=== PATIENT | male | born 1940 | race Caucasian/White ===

== ENCOUNTER 2020-09-04 18:49 | Inpatient (IN) | payer MEDICARE, MEDICAID, SELFPAY ==
[2020-09-04 19:11] VITALS: BP 114/63; PULSE 86; RESP 16; TEMP 36.7; O2SAT 97; BMI 22.8
--- NOTE | 2020-09-04 19:14 | XRR_ITS ---
PROCEDURE INFORMATION: Exam: XR Right Hip Exam date and time: 09/04/2020 7:14 PM Age: 79 years old Clinical indication: Injury or trauma; Fall; Blunt trauma (contusions or hematomas); Right; Hip TECHNIQUE: Imaging protocol: XR Right hip. Views: 1 view hip with pelvis when performed. COMPARISON: No relevant prior studies available. FINDINGS: Bones/joints: Displaced comminuted fractures through the intertrochanteric right femur. There are adjacent free fracture fragments. Soft tissues: Edema and/or hematoma is present in the soft tissues adjacent to the fracture site.Vasculature: There are peripheral vascular calcifications. XR/XR hip RT 2-3V wo/w pel* [id number] IMPRESSION: There are displaced comminuted fractures through the intertrochanteric right femur with adjacent free fracture fragments.
--- NOTE | 2020-09-04 19:14 | XRR_ITS ---
PROCEDURE INFORMATION: Exam: XR Chest Exam date and time: 09/04/2020 7:14 PM Age: 79 years old Clinical indication: Screening exam; Pre-operative exam; Other: Hip FX; Additional info: Fall TECHNIQUE: Imaging protocol: XR of the chest. Views: 1 view. COMPARISON: No relevant prior studies available. FINDINGS: Lungs: Unremarkable. No consolidation. Pleural spaces: Unremarkable. No pleural effusion. No pneumothorax. Heart/Mediastinum: Unremarkable. No cardiomegaly. Vasculature: There is calcified plaque in the aortic arch. Aortic knob is somewhat prominent. prominent. Bones/joints: There are degenerative changes in the thoracic spine and across the acromioclavicular joints. XR/XR chest 1V portable [id number] IMPRESSION: There is calcified plaque in the aortic arch. The aortic knob is somewhat prominent. This can be seen with hypertension.
--- NOTE | 2020-09-04 19:15 | ECG_ITS ---
[facility] Test Date: 2020-09-04 Pat Name: Raimundo Lepe Department: Room: 276 Gender: Male [employer]: : 1940 Requested By: Saturnino Lin Order Number: [id number] Mamta MD: Luke Ratliff M.D. Measurements Intervals [place] Rate: 123 P: WI: QRS: -66 QRSD: 174 T: 64 QT: 394 QTc: 565 Interpretive Statements UNCERTAIN IRREGULAR RHYTHM MARKED LEFT AXIS DEVIATION [QRS AXIS < -30] RIGHT BUNDLE BRANCH BLOCK [120+ ms QRS DURATION, UPRIGHT V1, 40+ ms S IN I/aVL/V4/V5/V6] No previous ECG available for comparison Electronically Signed On 09-05-2020 17:08:15 CDT by Luke Ratliff M.D. [id number]
[2020-09-04 19:42] LABS: Bilirubin Urine Neg (Negative); Blood Urine Neg (Negative); Glucose Urine UA Norm (Normal); Ketones Urine Negative (Negative); Nitrate Urine Negative (Negative); Protein Urine Neg (Negative); Urine Appearance Clear (CLEAR); Urine Color Yellow (Yellow); pH Urine 5 (5-7)
[2020-09-04 19:43] LABS: Add Urine Microscopic? YES; Leukocyte Esterase Urine Trace (Negative); Urobilinogen Urine Norm (Negative)
[2020-09-04 19:54] LABS: Basophils # 0.1 10^3/uL (0.0-0.1); Basophils % 0.5 %; Eosinophils # 0.3 10^3/uL (0.0-0.8); Eosinophils % 3.2 %; Hematocrit 34.4 % (42.0-52.0); Lymphocytes # 1.6 10^3/uL (0.8-4.8); Lymphocytes % 16.3 %; Mean Corpuscular Hemoglobin 28.9 pg (28.0-34.0); Mean Corpuscular Volume 90.5 fL (80-94); Mean Platelet Volume 10.5 fL (7.4-10.4); Monocytes # 0.9 10^3/uL (0.2-0.9); Monocytes % 8.6 %; Neutrophils # 7.11 10^3/uL (1.8-7.7); Neutrophils % 70.4 %; Nucleated Red Blood Cells % 0 %; Platelet Count 325 10^3/cmm (130-400); Red Cell Distribution Width 17.9 % (12.1-15.1); White Blood Count 10.1 10^3/uL (4.0-10.0)
[2020-09-04 19:59] LABS: Add Urine Culture? No; Squamous Epithelial Cell Urine 0-4 /hpf (0-5); WBC Urine 0-4 /hpf (0-5)
[2020-09-04 20:10] LABS: INR 1.19 (0.8-1.2)
[2020-09-04 20:11] LABS: Partial Thromboplastin Time 29.4 SECONDS (23.9-36.7)
[2020-09-04 20:19] LABS: Alanine Aminotransferase 20 U/L (0-41); Albumin Level 3.1 g/dL (3.5-5.2); Alkaline Phosphatase 85 IU/L (40-130); Anion Gap 10.9 (5-19); Aspartate Amino Transferase 29 U/L (0-40); Blood Urea Nitrogen 17 mg/dL (8-23); Carbon Dioxide 27 mmol/L (22-29); Chloride 105 mmol/L (98-107); Creatine Phosphokinase 87 U/L (39-308); Globulin 2.5 g/dL (1.3-4.6); Glucose 77 mg/dL (65-115); Osmolality Calculated 288 mOsm/kg (285-295); Potassium 3.9 mmol/L (3.5-5.1); Sodium 139 mmol/L (136-145); Total Bilirubin 1.3 mg/dL (0.15-1.2); Total Protein 5.6 g/dL (6.6-8.7)
--- NOTE | 2020-09-04 20:27 | PC.NURSE ---
1945 Sitter outside room because pt has hx of climbing out of bed.
--- NOTE | 2020-09-04 20:31 | ED_ITS ---
HPI - Fall General: Chief Complaint: Fall Stated Complaint: RIGHT LEG PAIN Time Seen by Provider: 09/04/20 18:59 History of Present Illness: HPI Narrative: 79-year-old demented half-way patient who is a fall risk in the half-way. He has a mattress on the floor. He was found beside the mattress in pain. His pain and deformity to his right lower extremity. He denies any other pain, no evidence of other trauma. MD complaint: fall Onset (ago): minute(s) Fall from: standing Fall witnessed: no Place fall occurred: half-way/SNF Loss of consciousness: Unsure Prolonged down time: no Symptoms prior to fall: other (Unknown) Location of injury - extremities: Right: thigh Severity: moderate Quality: sharp Associated symptoms-after fall: Denies abdominal pain, chest pain, confusion (At baseline), headache(s) or short of breath Review of Systems General: Reports: ROS unobtainable due to medical condition Const: Denies: fever(s) Card: Denies: chest pain Resp: Denies: dyspnea GI: Denies: abdominal pain Neuro: Denies: headache(s) or confusion (At baseline) Physical Exam Const: COMMON NORMALS: no acute distress and alert GENERAL APPEARANCE: frail appearing NUTRITIONAL APPEARANCE: thin Eye: COMMON NORMALS: Equal, round and reactive pupils present and EOMs intact bilaterally PUPIL: Yes Equal, round and reactive pupils present Neck/C-Spine: GENERAL: No tender Chest: COMMONS NORMALS: normal inspection of the chest Resp: COMMON NORMALS: normal respiratory effort, No use of accessory muscles and clear to auscultation bilaterally AUSCULTATION: clear to auscultation bilaterally Cardio: COMMON NORMALS: regular rate and regular rhythm RATE: regular rate RHYTHM: regular rhythm GI: COMMON NORMALS: Normal to inspection, nondistended, normoactive bowel sounds present, Soft to palpation and non-tender PALPATION: Yes Soft to palpation Extremity: NARRATIVE EXTREMITY EXAM: Exam the right lower extremity reveals tenderness anterior and laterally to the hip. There is significant pain on any logroll testing there is external rotation and shortening deformity present to the right lower extremity. Neuro: SENSORIUM/ORIENTATION: Yes alert Course Consultations: Consultation #1: chandrika Consultation #2: eren Time: 20:46 Vital Signs: Vital signs: Vital Signs Temperature 97.9 F 07/10/21 23:30 Pulse Rate 84 07/10/21 23:30 Respiratory Rate 18 09/05/20 00:42 Blood Pressure 120/68 09/04/20 23:30 Pulse Oximetry 96 09/04/20 23:30 MDM - Fall MDM Narrative: Medical decision making narrative: X-ray reveals a right intertrochanteric fracture. There may be a right upper lobe infiltrate. The chest film is rotated. We will try reshooting to see if it may be mediastinal shadow. Chest x-ray was rotated, it appears to be mediastinal shadow, and there is no infiltrate. Rapid Covid is pending. The patient will be admitted. Hospitalist and orthopedic surgeon are both aware. Lab Data: Labs: Lab Results 09/04/20 09/04/20 09/04/20 Range/Units 19:30 19:40 19:40 WBC 10.1 H (4.0-10.0) 10^3/ uL RBC 3.80 L (4.1-5.3) 10^6/u L Hgb 11.0 L (11.7-16.6) g/dL Hct 34.4 L (42.0-52.0) % MCV 90.5 (80-94) fL MCH 28.9 (28.0-34.0) pg MCHC 32.0 (30.0-36.0) g/dL RDW 17.9 H (12.1-15.1) % Plt Count 325 (130-400) 10^3/c mm MPV 10.5 H (7.4-10.4) fL Neut % (Auto) 70.4 % Lymph % (Auto) 16.3 % [place] % (Auto) 8.6 % Eos % (Auto) 3.2 % Baso % (Auto) 0.5 % Neut # (Auto) 7.11 (1.8-7.7) 10^3/u L Lymph # (Auto) 1.6 (0.8-4.8) 10^3/u L [place] # (Auto) 0.9 (0.2-0.9) 10^3/u L Eos # (Auto) 0.3 (0.0-0.8) 10^3/u L Baso # (Auto) 0.1 (0.0-0.1) 10^3/u L Nucleated RBC % (a uto) 0 % Nucleated RBCs # 0.0 /100WBC PT 15.40 H (12.1-14.9) SECO NDS INR 1.19 (0.8-1.2) APTT 29.4 (23.9-36.7) SECO NDS Sodium (136-145) mmol/L Potassium (3.5-5.1) mmol/L Chloride (98-107) mmol/L Carbon Dioxide (22-29) mmol/L Anion Gap (5-19) BUN (8-23) mg/dL Creatinine (0.7-1.2) mg/dL GFR Calculation Glucose (65-115) mg/dL Calculated Osmolal ity (285-295) mOsm/k g Calcium (8.5-10.5) mg/dL Total Bilirubin (0.15-1.2) mg/dL AST (0-40) U/L ALT (0-41) U/L Alkaline Phosphata se (40-130) IU/L Creatine Kinase (39-308) U/L Total Protein (6.6-8.7) g/dL Albumin (3.5-5.2) g/dL Globulin (1.3-4.6) g/dL Urine Color Yellow (Yellow) Urine Appearance Clear (CLEAR) Urine pH 5 (5-7) Ur Specific Gravit y 1.020 (1.005-1.030) Urine Protein Neg (Negative) Urine Glucose (UA) Norm (Normal) Urine Ketones Negative (Negative) Urine Blood Neg (Negative) Urine Nitrate Negative (Negative) Urine Bilirubin Neg (Negative) Urine Urobilinogen Norm (Negative) mg/dL Ur Leukocyte Jerrica ase Trace H (Negative) Urine RBC None (0-2) /hpf Urine WBC 0-4 H (0-5) /hpf Ur Squamous Epith Cells 0-4 H (0-5) /hpf Amorphous Sediment Not Reportable Urine Bacteria None (NONE) /hpf Valproic Acid (50-100) ug/mL 09/04/20 09/04/20 Range/Units 19:40 19:40 WBC (4.0-10.0) 10^3/ uL RBC (4.1-5.3) 10^6/u L Hgb (11.7-16.6) g/dL Hct (42.0-52.0) % MCV (80-94) fL MCH (28.0-34.0) pg MCHC (30.0-36.0) g/dL RDW (12.1-15.1) % Plt Count (130-400) 10^3/c mm MPV (7.4-10.4) fL Neut % (Auto) % Lymph % (Auto) % [place] % (Auto) % Eos % (Auto) % Baso % (Auto) % Neut # (Auto) (1.8-7.7) 10^3/u L Lymph # (Auto) (0.8-4.8) 10^3/u L [place] # (Auto) (0.2-0.9) 10^3/u L Eos # (Auto) (0.0-0.8) 10^3/u L Baso # (Auto) (0.0-0.1) 10^3/u L Nucleated RBC % (a uto) % Nucleated RBCs # /100WBC PT (12.1-14.9) SECO NDS INR (0.8-1.2) APTT (23.9-36.7) SECO NDS Sodium 139 (136-145) mmol/L Potassium 3.9 (3.5-5.1) mmol/L Chloride 105 (98-107) mmol/L Carbon Dioxide 27 (22-29) mmol/L Anion Gap 10.9 (5-19) BUN 17 (8-23) mg/dL Creatinine 0.5 L (0.7-1.2) mg/dL GFR Calculation Not Reportable Glucose 77 (65-115) mg/dL Calculated Osmolal ity 288 (285-295) mOsm/k g Calcium 9.0 (8.5-10.5) mg/dL Total Bilirubin 1.3 H (0.15-1.2) mg/dL AST 29 (0-40) U/L ALT 20 (0-41) U/L Alkaline Phosphata se 85 (40-130) IU/L Creatine Kinase 87 (39-308) U/L Total Protein 5.6 L (6.6-8.7) g/dL Albumin 3.1 L (3.5-5.2) g/dL Globulin 2.5 (1.3-4.6) g/dL Urine Color (Yellow) Urine Appearance (CLEAR) Urine pH (5-7) Ur Specific Gravit y (1.005-1.030) Urine Protein (Negative) Urine Glucose (UA) (Normal) Urine Ketones (Negative) Urine Blood (Negative) Urine Nitrate (Negative) Urine Bilirubin (Negative) Urine Urobilinogen (Negative) mg/dL Ur Leukocyte Jerrica ase (Negative) Urine RBC (0-2) /hpf Urine WBC (0-5) /hpf Ur Squamous Epith Cells (0-5) /hpf Amorphous Sediment Urine Bacteria (NONE) /hpf Valproic Acid 13.6 L (50-100) ug/mL Discharge Plan Discharge Patient Disposition: Admitted As Inpatient Admit Provider: Yudith Maddox Clinical Impression: Closed hip fracture Qualifiers: Encounter type: initial encounter Laterality: right Qualified Code(s): S72.001A - Fracture of unspecified part of neck of right femur, initial encounter for closed fracture Condition: Stable Coding Level of Care Code ED Child Therapist for [place] Fwd Exam Detailed
[2020-09-04 20:39] VITALS: BP 129/76; PULSE 89; RESP 18; O2SAT 97
[2020-09-04 20:57] LABS: Valproic Acid Level 13.6 ug/mL (50-100)
--- NOTE | 2020-09-04 21:55 | PC.NURSE ---
Pt resting, appears to be in no pain when not moving. Vital signs are stable. Sitter outside room.
[2020-09-04 22:19] LABS: SARS Covid-2 Antigen Negative (Negative)
[2020-09-04 22:21] VITALS: BP 127/81; PULSE 86; RESP 16; O2SAT 97
--- NOTE | 2020-09-04 22:45 | PM.HP ---
Providers/Chief Complaint Admitting Physician: Yudith Maddox MD Primary Care Provider: Surya Song DO Chief Complaint: RIGHT LEG PAIN History of Present Illness Raimundo Lepe is a 79 year old male who presented from [facility] after being found on the floor. Mr. Lepe has dementia and is a known fall risk at the facility. He does have a mattress on the floor in his room according to ER records. When he was found by staff, he had a visual deformity to the right lower extremity and was sent to the emergency room for evaluation. He was found to have an intertrochanteric fracture of the right hip. Case was discussed with orthopedics by the ER physician. He is being admitted for management. Rapid Covid antigen was negative. It looks like at baseline patient is known to have behavioral disturbances including crawling on the floor, counting, some increased agitation, taking off diaper. Symptoms worse at night. Had been on haldol for a while but changed to seroquel at bedtime 08/24. No history is able to be obtained from the patient. He keeps trying to move around and requires reminder that he hurts because he has a fracture. He does have outside of hospital DO NOT RESUSCITATE paperwork that was sent with him. He has a legally appointed guardian. Her name is Virgen Sequeira cell phone #[phone] and office #[phone] Review of Systems General: Reports: ROS unobtainable due to mental status Musc: Reports: extremity pain Medications/Allergies Allergies Allergy/AdvReac Type Severity Reaction Status Date / Time No Known Allergies Allergy Verified 09/05/20 02:02 Additional Medication Information Home medications include Tylenol, bisacodyl, milk of magnesia, amlodipine, aspirin, atorvastatin, divalproex sprinkles, Flomax, Seroquel. It looks like patient was started on Cipro and acidophilus on August 26 for urinary tract infection PFSH Acute PFSH: Medical History (Updated 09/05/20 @ 02:13 by Yudith Maddox MD) Dementia with behavioral problem Dyslipidemia Essential hypertension History of CVA (cerebrovascular accident) History of urinary retention Seizure disorder Social History (Updated 09/05/20 @ 01:55 by Yudith Maddox MD) Housing: [facility] Supplemental PFSH Information: To obtain surgical or family history secondary to mental status. Unknown social history beyond residing at facility. Vitals/I&O/Wt Last Vital Signs Temp 98.0 F 09/04/20 19:11 Pulse 86 09/04/20 22:21 Resp 16 09/04/20 22:21 BP 127/81 09/04/20 22:21 Pulse Ox 97 09/04/20 22:21 Weight last 48 hrs Weight 68.039 kg Physical Exam Narrative: EXAM NARRATIVE: Constitutional: Awake, smiling, trying to reposition himself HEENT: Normocephalic, atraumatic, mucous membranes moist, pupils reactive Neck: Supple Respiratory: Clear to auscultation bilaterally Cardiovascular: Regular rhythm Abdomen: Abdomen soft, nontender, positive bowel sounds : Henderson catheter noted, yellow urine Extremities: Edematous right thigh with bruising noted medially, keeping right leg externally rotated and bent at the knee Skin: Other than the bruising, pale, no rashes Neuro: Restless, moves all extremities, face symmetric Psych: Oriented to person but not to place or situation Urinary Catheter Management^: Henderson: Cath Placed During This Visit: yes Urinary Catheter Date of Insertion: 09/04/20 Urinary Catheter Time of Insertion: 19:30 Data : 09/04/20 19:40 09/04/20 19:40 Other data: Laboratory Results WBC 10.1 10^3/uL (4.0-10.0) H 09/04/20 19:40 RBC 3.80 10^6/uL (4.1-5.3) L 09/04/20 19:40 Hgb 11.0 g/dL (11.7-16.6) L 09/04/20 19:40 Hct 34.4 % (42.0-52.0) L 09/04/20 19:40 MCV 90.5 fL (80-94) 09/04/20 19:40 MCH 28.9 pg (28.0-34.0) 09/04/20 19:40 MCHC 32.0 g/dL (30.0-36.0) 09/04/20 19:40 RDW 17.9 % (12.1-15.1) H 09/04/20 19:40 Plt Count 325 10^3/cmm (130-400) 09/04/20 19:40 MPV 10.5 fL (7.4-10.4) H 09/04/20 19:40 Neut % (Auto) 70.4 % 09/04/20 19:40 Lymph % (Auto) 16.3 % 09/04/20 19:40 [place] % (Auto) 8.6 % 09/04/20 19:40 Eos % (Auto) 3.2 % 09/04/20 19:40 Baso % (Auto) 0.5 % 09/04/20 19:40 Neut # (Auto) 7.11 10^3/uL (1.8-7.7) 09/04/20 19:40 Lymph # (Auto) 1.6 10^3/uL (0.8-4.8) 09/04/20 19:40 [place] # (Auto) 0.9 10^3/uL (0.2-0.9) 09/04/20 19:40 Eos # (Auto) 0.3 10^3/uL (0.0-0.8) 09/04/20 19:40 Baso # (Auto) 0.1 10^3/uL (0.0-0.1) 09/04/20 19:40 Nucleated RBC % (auto) 0 % 09/04/20 19:40 Nucleated RBCs # 0.0 /100WBC 09/04/20 19:40 PT 15.40 SECONDS (12.1-14.9) H 09/04/20 19:40 INR 1.19 (0.8-1.2) 09/04/20 19:40 APTT 29.4 SECONDS (23.9-36.7) 09/04/20 19:40 Sodium 139 mmol/L (136-145) 09/04/20 19:40 Potassium 3.9 mmol/L (3.5-5.1) 09/04/20 19:40 Chloride 105 mmol/L (98-107) 09/04/20 19:40 Carbon Dioxide 27 mmol/L (22-29) 09/04/20 19:40 Anion Gap 10.9 (5-19) 09/04/20 19:40 BUN 17 mg/dL (8-23) 09/04/20 19:40 Creatinine 0.5 mg/dL (0.7-1.2) L 09/04/20 19:40 GFR Calculation Not Reportable 09/04/20 19:40 Glucose 77 mg/dL (65-115) 09/04/20 19:40 Calculated Osmolality 288 mOsm/kg (285-295) 09/04/20 19:40 Calcium 9.0 mg/dL (8.5-10.5) 09/04/20 19:40 Total Bilirubin 1.3 mg/dL (0.15-1.2) H 09/04/20 19:40 AST 29 U/L (0-40) 09/04/20 19:40 ALT 20 U/L (0-41) 09/04/20 19:40 Alkaline Phosphatase 85 IU/L (40-130) 09/04/20 19:40 Creatine Kinase 87 U/L (39-308) 09/04/20 19:40 Total Protein 5.6 g/dL (6.6-8.7) L 09/04/20 19:40 Albumin 3.1 g/dL (3.5-5.2) L 09/04/20 19:40 Globulin 2.5 g/dL (1.3-4.6) 09/04/20 19:40 Urine Color Yellow (Yellow) 09/04/20 19:30 Urine Appearance Clear (CLEAR) 09/04/20 19:30 Urine pH 5 (5-7) 09/04/20 19:30 Ur Specific [place] 1.020 (1.005-1.030) 09/04/20 19:30 Urine Protein Neg (Negative) 09/04/20 19:30 Urine Glucose (UA) Norm (Normal) 09/04/20 19:30 Urine Ketones Negative (Negative) 09/04/20 19:30 Urine Blood Neg (Negative) 09/04/20 19:30 Urine Nitrate Negative (Negative) 09/04/20 19:30 Urine Bilirubin Neg (Negative) 09/04/20 19:30 Urine Urobilinogen Norm mg/dL (Negative) 09/04/20 19:30 Ur Leukocyte Esterase Trace (Negative) H 09/04/20 19:30 Urine RBC None /hpf (0-2) 09/04/20 19:30 Urine WBC 0-4 /hpf (0-5) H 09/04/20 19:30 Ur Squamous Epith Cells 0-4 /hpf (0-5) H 09/04/20 19:30 Amorphous Sediment Not Reportable 09/04/20 19:30 Urine Bacteria None /hpf (NONE) 09/04/20 19:30 Valproic Acid 13.6 ug/mL (50-100) L 09/04/20 19:40 SARS-CoV-2 Ag (Rapid) Negative (Negative) 09/04/20 21:50 Impressions Chest X-Ray 09/04/20 19:14 IMPRESSION: There is calcified plaque in the aortic arch. The aortic knob is somewhat prominent. This can be seen with hypertension. Hip/Pelvis X-Ray 09/04/20 19:14 IMPRESSION: There are displaced comminuted fractures through the intertrochanteric right femur with adjacent free fracture fragments. A&P Assessment and plan (1) Unwitnessed fall: In a gentleman with a history of prior falls who [facility] Status: Acute (2) Closed hip fracture: Status: Acute Qualifiers: Encounter type: initial encounter Laterality: right Qualified Code(s): S72.001A - Fracture of unspecified part of neck of right femur, initial encounter for closed fracture (3) Anemia: H&H on August 13 was 13.8/43.8 Status: Acute Qualifiers: Anemia type: other cause Other causes of anemia: acute posthemorrhagic Qualified Code(s): D62 - Acute posthemorrhagic anemia (4) 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 around August 25 Status: Chronic Qualifiers: Dementia type: unspecified type Qualified Code(s): F03.91 - Unspecified dementia with behavioral disturbance (5) Seizure disorder: Chronically on divalproex sprinkles Status: Chronic (6) Essential hypertension: Normally on the amlodipine Status: Chronic (7) Dyslipidemia: Chronically on statin Status: Chronic (8) History of urinary retention: Chronically on Flomax Status: Chronic (9) Dysphagia: Details unknown Status: Chronic Qualifiers: Dysphagia type: unspecified Qualified Code(s): R13.10 - Dysphagia, unspecified (10) History of CVA (cerebrovascular accident): Unknown baseline Status: Chronic Additional A&P Information Inpatient admission Orthopedic consultation Pain control Fall risk precautions, may require sitter for safety Type and screen and recheck H&H in the morning Rapid Covid was negative, Covid PCR ordered for preop Continue home Seroquel but at a slightly lower dose Continue home Depakote sprinkles Continue home amlodipine and atorvastatin Laxative therapy Continue probiotics as has just completed a 10-day course of Cipro Low rate of IV fluids Continue Henderson catheter presently Continue home Flomax SCDs for DVT prophylaxis We will maintain n.p.o. status until seen by orthopedics Supportive care otherwise Allow natural as per available records sent with patient Court-appointed guardian is Alyssia Sequeira with phone numbers noted above in HPI Anticipated disposition [facility] back to [facility] Medical Necessity Statement*: Anticipated stay greater than two midnights in a gentleman with hip fracture that will require intervention for comfort/safety. Plans are as noted above. Coding Level of Care Code Acute Dragger for Chg Fwd Diagnoses Unwitnessed fall R29.6 Closed hip fracture S72.001A Encounter type: initial encounter Laterality: right Anemia D62 Anemia type: other cause Other causes of anemia: acute posthemorrhagic Dementia with behavioral problem F03.91 Dementia type: unspecified type Seizure disorder G40.909 Essential hypertension I10 Dyslipidemia E78.5 History of urinary retention Z87.898 Dysphagia R13.10 Dysphagia type: unspecified History of CVA (cerebrovascular accident) Z86.73
[2020-09-04 23:30] VITALS: BP 120/68; PULSE 84; RESP 16; TEMP 36.6; O2SAT 96
[2020-09-05] VITALS (9 sets, daily range): BP systolic 120–126; BP diastolic 66–69; PULSE 72–92; RESP 14–18; TEMP 36.3–36.9; O2SAT 93–98
[2020-09-05] MEDS: sodium chloride 0.9% 1,000 ML 100 ML IV (00:35)
[2020-09-05] MEDS: morphine 4 mg/mL SDV 1 mL 2 MG IVP ×4 (00:42→21:18)
[2020-09-05] MEDS: D5-NS 0.45% + KCL 20 mEq 20 MEQ/1,000 ML BAG 75 MEQ IV ×2 (04:16→16:12)
[2020-09-05 05:49] LABS: Basophils # 0.1 10^3/uL (0.0-0.1); Basophils % 0.7 %; Eosinophils # 0.4 10^3/uL (0.0-0.8); Eosinophils % 3.7 %; Hemoglobin 10.4 g/dL (11.7-16.6); Lymphocytes # 1.6 10^3/uL (0.8-4.8); Lymphocytes % 16.9 %; Mean Corpuscular HGB Conc 31.5 g/dL (30.0-36.0); Mean Corpuscular Hemoglobin 29.1 pg (28.0-34.0); Mean Corpuscular Volume 92.2 fL (80-94); Mean Platelet Volume 10.5 fL (7.4-10.4); Monocytes # 0.9 10^3/uL (0.2-0.9); Monocytes % 8.9 %; Neutrophils % 68.6 %; Nucleated Red Blood Cells % 0 %; Platelet Count 299 10^3/cmm (130-400); Red Blood Count 3.58 10^6/uL (4.1-5.3); Red Cell Distribution Width 17.9 % (12.1-15.1); White Blood Count 9.6 10^3/uL (4.0-10.0)
[2020-09-05] MEDS: lactobacillus 1 Tablet 1 TAB PO ×2 (09:26→17:59)
[2020-09-05] MEDS: amlodipine 5 mg Tablet PO (09:26)
[2020-09-05] MEDS: tamsulosin 0.4 mg Capsule PO (09:26)
[2020-09-05] MEDS: divalproex Sprinkles 125 mg Capsule PO ×2 (09:26→17:59)
[2020-09-05] MEDS: docusate sodium 100 mg Capsule PO ×2 (09:26→17:59)
--- NOTE | 2020-09-05 15:44 | P.PN_ITS ---
Subjective Subjective: Interval history: 79-year-old male resident of [facility] with a past medical history significant for advanced dementia with behavioral problems, hypertension, dyslipidemia, CVA and seizure disorder who presented to the hospital After he was found on the ground.Upon arrival to emergency roomHis laboratory workup showed a WBC of 10.1, hemoglobin of 11.0, hematocrit 34.4 and a platelet count of 325. INR 1.1. Sodium 139, potassium 3.9, chloride 105, bicarb 27, BUN 17 and creatinine of 0.5. Urinalysis showed trace leukocyte esterase otherwise was negative. Rapid covered antigen was negative. PCR was performed however pending.Chest x-ray showed calcified plaque in aortic arch otherwise unremarkable. Hip x-ray showed displaced comminuted fracture through the intertrochanteric right femur with adjacent free fracture fragments. 09/05/20 Pain controlled, no new clinical events overnight Medications: Reviewed: Yes Vitals/I&O/Wt Last Vital Signs Temp 98.4 F 09/05/20 12:00 Pulse 78 09/05/20 12:00 Resp 18 09/05/20 14:38 BP 120/68 09/05/20 12:00 Pulse Ox 93 09/05/20 14:38 09/05/20 09/05/20 09/05/20 06:59 14:59 22:59 Output Total 850 / 850 Balance -850 / -850 Weight last 48 hrs Weight 68.039 kg Physical Exam Narrative: EXAM NARRATIVE: Constitutional: Awake, no distress. HEENT: Normocephalic, atraumatic, mucous membranes moist, pupils reactive Neck: Supple Respiratory: Clear to auscultation bilaterally Cardiovascular: Regular rhythm Abdomen: Abdomen soft, nontender, positive bowel sounds : Ochoa catheter noted, yellow urine Extremities: Edematous right thigh with bruising noted medially, keeping right leg externally rotated and bent at the knee, pain with movemen t Skin: Other than the bruising, pale, no rashes Neuro: Restless, moves all extremities, face symmetric Psych: Oriented to person but not to place or situation Urinary Catheter Management^: Ochoa: Cath Placed During This Visit: yes Urinary Catheter Date of Insertion: 09/04/20 Urinary Catheter Time of Insertion: 19:30 Data : 09/05/20 05:15 09/04/20 19:40 A&P Assessment and plan (1) Unwitnessed fall: In a gentleman with a history of prior falls who has a mattress on the floor in his room at the intermediate Status: Acute (2) Closed hip fracture: Status: Acute Qualifiers: Encounter type: initial encounter Laterality: right Qualified Code(s): S72.001A - Fracture of unspecified part of neck of right femur, initial encounter for closed fracture (3) Anemia: H&H on August 13 was 13.8/43.8 Status: Acute Qualifiers: Anemia type: other cause Other causes of anemia: acute posthemorrhagic Qualified Code(s): D62 - Acute posthemorrhagic anemia (4) 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 around August 25 Status: Chronic Qualifiers: Dementia type: unspecified type Qualified Code(s): F03.91 - Unspecified dementia with behavioral disturbance (5) Seizure disorder: Chronically on divalproex sprinkles Status: Chronic (6) Essential hypertension: Normally on the amlodipine Status: Chronic (7) Dyslipidemia: Chronically on statin Status: Chronic (8) History of urinary retention: Chronically on Flomax Status: Chronic (9) Dysphagia: Details unknown Status: Chronic Qualifiers: Dysphagia type: unspecified Qualified Code(s): R13.10 - Dysphagia, unspecified (10) History of CVA (cerebrovascular accident): Unknown baseline Status: Chronic Additional A&P Information Fall with right hip fracture Orthopedic surgery consulted in ER Fall precautions Pain control NPO midnight Await surgical recommendations Seizure Disorder Continue divlproex Seizure precautions Level ordered pending Acute Blood Loss Anemia Hb 13-> 11 H/H in am Iron studies in am Urinary retention s/p ochoa Flomax Monitor u/o Additional Medical Problems Advanced Dementia Hypertension Dyslipidemia Dysphagia DVT ppx Attestations Medical Necessity Statement*: Will require further hospitalization for management of hip fracture likely requiring surgical intervention Time Spent in Patient Care: Greater than 35 minutes (>than 50% of time spent in counselling and/or direct pt care on unit) . Coding Level of Care Code Acute [place] Technician for Curtis Dwyer Diagnoses Unwitnessed fall R29.6 Closed hip fracture S72.001A Encounter type: initial encounter Laterality: right Anemia D62 Anemia type: other cause Other causes of anemia: acute posthemorrhagic Dementia with behavioral problem F03.91 Dementia type: unspecified type Seizure disorder G40.909 Essential hypertension I10 Dyslipidemia E78.5 History of urinary retention Z87.898 Dysphagia R13.10 Dysphagia type: unspecified History of CVA (cerebrovascular accident) Z86.73
--- NOTE | 2020-09-05 16:24 | PM.CONSULT ---
Providers/Reason For Consult Consulting Physician/Specialty*: Spencer Zurita MD; orthopedic surgery Reason for Consult*: Right intertrochanteric hip Attending Physician: Kehinde Sierra Primary Care Provider: Surya Song DO History of Present Illness History of Present Illness Raimundo Lepe is a 79 year old male resident at [facility] where he was found on the floor. The patient has dementia is unable to give any history. He was noted to have the visual deformity of the right lower extremity he was transferred to our emergency room where radiographs revealed a right intertrochanteric hip fracture. The patient has known behavioral disturbances including crawling on the floor agitation and problems with bowel and bladder control. He has a legally appointed guardian Meds/Allergies Home Medications and Allergies Home Medications Medication Instructions Recorded Confirmed Last Taken Type Lactobacillus acidophilus 1 cap PO BID 09/05/20 09/05/20 09/04/20 History [Acidophilus] FINISHED 09/04/20 acetaminophen 650 mg PO Q4H PRN 09/05/20 09/05/20 Unknown History amlodipine 5 mg PO DAILY@09/05/20 09/05/20 Unknown History aspirin [Aspir-81] 81 mg PO DAILY@09/05/20 09/05/20 Unknown History atorvastatin 40 mg PO DAILY@09/05/20 09/05/20 Unknown History bisacodyl 10 mg TX DAILY PRN 09/05/20 09/05/20 Unknown History bisacodyl 20 mg PO DAILY PRN 09/05/20 09/05/20 Unknown History ciprofloxacin HCl [Cipro] 500 mg PO BID 09/05/20 09/05/20 09/04/20 History FINISHED 09/04/20 divalproex 125 mg PO BID@09/05/20 09/05/20 Unknown History magnesium hydroxide [Milk of 30 ml PO DAILY PRN 09/05/20 09/05/20 Unknown History Magnesia] quetiapine 50 mg PO BEDTIME@09/05/20 09/05/20 Unknown History tamsulosin 0.4 mg PO DAILY@09/05/20 09/05/20 Unknown History Allergies Allergy/AdvReac Type Severity Reaction Status Date / Time No Known Allergies Allergy Verified 09/05/20 10:17 Current Medications Current Medications Generic Name Dose Route Start Last Admin Trade Name Freq PRN Reason Stop Dose Admin Amlodipine Besylate 5 mg 09/05/20 09:00 09/05/20 09:26 Amlodipine 5 Mg Tablet PO 5 mg DAILY NORAH Administration Divalproex Sodium 125 mg 09/05/20 09:00 09/05/20 09:26 Divalproex Sprinkles 125 Mg Capsule PO 125 mg BID NORAH Administration Docusate Sodium 100 mg 09/05/20 09:00 09/05/20 09:26 Docusate Sodium 100 Mg Capsule PO 100 mg BID NORAH Administration Potassium Chloride/Dextrose/Sod Cl 20 meq in 1,000 mls @ 75 mls/hr 09/05/20 02:30 09/05/20 16:12 D5-Ns 0.45% + Kcl 20 Meq IV 75 mls/hr .[id number] NORAH Administration Lactobacillus Acidophilus 1 tab 09/05/20 09:00 09/05/20 09:26 Lactobacillus 1 Tablet PO 1 tab BID NORAH Administration Morphine Sulfate 2 mg 09/04/20 23:38 09/05/20 14:38 Morphine 4 Mg/Ml Sdv 1 Ml IVP 2 mg Q4H PRN Administration SEVERE PAIN Tamsulosin HCl 0.4 mg 09/05/20 09:00 09/05/20 09:26 Tamsulosin 0.4 Mg Capsule PO 0.4 mg DAILY NORAH Administration PFSH Acute PFSH: Medical History (Updated 09/05/20 @ 16:29 by Spencer Zurita MD) Dementia with behavioral problem Dyslipidemia Essential hypertension History of CVA (cerebrovascular accident) History of urinary retention Seizure disorder Social History (Updated 09/05/20 @ 01:55 by Yudith Maddox MD) Housing: Detention Vitals/I&O/Wt Last Vital Signs Temp 98.4 F 09/05/20 12:00 Pulse 78 09/05/20 12:00 Resp 18 09/05/20 14:38 BP 120/68 09/05/20 12:00 Pulse Ox 93 09/05/20 14:38 09/05/20 09/05/20 09/05/20 06:59 14:59 22:59 Intake Total 895 / 895 Output Total 850 / 850 Balance -850 / -850 895 / 895 Weight last 48 hrs Weight 150 lb Physical Exam Narrative: EXAM NARRATIVE: Patient is a thin male supine and resting after being given medications. He has clear shortening and external rotation of the right hip and does express some pain with motion of the right hip. He has a palpable right dorsalis pedis pulse. He expresses pain with internal or external rotation of the right hip I am unable to obtain a detailed neurovascular exam Urinary Catheter Management^: Henderson: Cath Placed During This Visit: yes Urinary Catheter Date of Insertion: 09/04/20 Urinary Catheter Time of Insertion: 19:30 Data Imaging^: Xray Ortho: My impression: 2 views of the right hip are personally 2 views of the right hip are interpreted from yesterday. 09/04/2020. The patient has a displaced right intratrochanteric hip fracture with apparent comminution involving the greater and lesser trochanters. A&P Assessment and plan (1) Intertrochanteric fracture of right hip: I discussed care with the patient DURABLE POWER OF SINGLE NEEDLE OPERATOR Virgen Sequeira. I told him that we do not unfortunately this will be quite painful and there are significant risk with nonoperative treatment. He will require pain medications that will place him risk of pulmonary and skin complications.I told her the other option would be surgical stabilization of this allowing to be mobilized and perhaps regain some weightbearing status. With his underlying mental status I am not certain that he will be a great candidate for rehabilitation but I do think we could control his pain. There would be some risk with surgery including medical risk with anesthesia, bleeding, infection, and unlikely deep venous thromboses and pulmonary blood. He will be given anticoagulation postoperatively to minimize risk of deep venous thromboses. After discussing options with her she wishes to proceed. We will proceed with surgery in the a.m. Status: Acute Coding Level of Care Code Acute Sales Account Associate for Curtis Dwyer Diagnoses Intertrochanteric fracture of right hip S72.141A
[2020-09-05] MEDS: quetiapine 25 mg Tablet PO (21:18)
[2020-09-05] MEDS: sennosides 8.6 mg Tablet 17.2 MG PO (21:18)
[2020-09-05] MEDS: atorvastatin 40 mg Tablet PO (21:18)
[2020-09-06] VITALS (22 sets, daily range): BP systolic 102–153; BP diastolic 52–88; PULSE 69–92; RESP 12–22; TEMP 36.2–37.1; O2SAT 92–100
--- NOTE | 2020-09-06 | SCC_ITS ---
Procedure Done: Open reduction internal fixation right hip with intramedullary device 67.3 seconds of fluoroscopic guidance, for a cumulative dose of 5.79 mGy, was provided to Dr. Zurita by the radiology department. C-arm images of the RIGHT femur were saved for the patient's permanent record. [facility]
--- NOTE | 2020-09-06 | XR_ITS ---
WS: [id number] Right femur and thigh, C-arm fluoroscopy, 09/06/2020. Clinical Data: orif , gamma nail Comparison: None. Findings: A right hip nail has been inserted. There is a long intramedullary rosalia. There is internal fixation of the intertrochanteric fracture. XR/XR femur RT min 2V* [id number] Impression: Internal fixation of right hip fracture.
[2020-09-06 03:01] LABS: Anion Gap 12.4 (5-19); Blood Urea Nitrogen 10 mg/dL (8-23); Calcium 8.3 mg/dL (8.5-10.5); Carbon Dioxide 26 mmol/L (22-29); Chloride 105 mmol/L (98-107); Glucose 104 mg/dL (65-115); Magnesium 1.8 mg/dL (1.7-2.3); Osmolality Calculated 287 mOsm/kg (285-295); Potassium 4.4 mmol/L (3.5-5.1); Sodium 139 mmol/L (136-145)
[2020-09-06] MEDS: morphine 4 mg/mL SDV 1 mL 2 MG IVP ×3 (03:53→18:23)
--- NOTE | 2020-09-06 06:53 | ANES.PREANE2 ---
Pre-Anesthetic Assessment Pre-Anesthetic Assessment: Height/Weight: Height 1.73 m Weight 68.039 kg Temp Pulse Resp BP Pulse Ox 97.8 F 72 18 102/52 98 09/06/20 06:35 09/06/20 06:35 09/06/20 06:35 09/06/20 06:35 09/06/20 06:35 Preop Diagnosis: right hip fracture Proposed Procedure: Operation Date: 09/06/20 14:30 Proposed Procedures p Trochanteric Femoral Nail(Right) - Spencer Zurita MD Was Beta Carter taken within 24 hours: N/A Was Clonidine taken within 24 hours: N/A Last Intake: 23:00 Social: Social History: No alcohol and No tobacco Exam: Pre-Anes Outpt Exam: alert, oriented x 3, clear to auscultation bilaterally and regular rate & rhythm Airway: Submandibular: WNL Cervical ROM: WNL MP: 1 Dentition: False CV/HEM: CV/HEM: HTN : : None reported Hepatic: Hepatic: None reported GI: GI: None reported Metabolic: Metabolic: None reported Musc/skel: Musc/skel: None reported Neuropsych: Neuropsych: CVA and Dementia Anesthetic Plan: ASA status: 3 Anesthesia: General Risk of > 500 ml blood loss (7ml/kg in children): No Meds/Allergies Current Medications: Current Medications Generic Name Dose Route Start Last Admin Trade Name Freq PRN Reason Stop Dose Admin Amlodipine Besylat e 5 mg 09/05/20 09:00 09/05/20 09:26 Amlodipine 5 Mg Tablet PO 5 mg DAILY NORAH Administration Atorvastatin Calci um 40 mg 09/05/20 21:00 09/05/20 21:18 Atorvastatin 40 Mg Tablet PO 40 mg BEDTIME NORAH Administration Divalproex Sodium 125 mg 09/05/20 09:00 09/05/20 17:59 Divalproex Sprin kles 125 Mg Capsul e PO 125 mg BID NORAH Administration Docusate Sodium 100 mg 09/05/20 09:00 09/05/20 17:59 Docusate Sodium 100 Mg Capsule PO 100 mg BID NORAH Administration Potassium Chloride /Dextrose/Sod Cl 20 meq in 1,000 m ls @ 75 mls/hr 09/05/20 02:30 09/05/20 16:12 D5-Ns 0.45% + Wander l 20 Meq IV 75 mls/hr .[id number] NORAH Administration Lactobacillus Acid ophilus 1 tab 09/05/20 09:00 09/05/20 17:59 Lactobacillus 1 Tablet PO 1 tab BID NORAH Administration Morphine Sulfate 2 mg 09/04/20 23:38 09/06/20 03:53 Morphine 4 Mg/Ml Sdv 1 Ml IVP 2 mg Q4H PRN Administration SEVERE PAIN Quetiapine Fumarat e 25 mg 09/05/20 21:00 09/05/20 21:18 Quetiapine 25 Mg Tablet PO 25 mg BEDTIME NORAH Administration Senna 17.2 mg 09/05/20 21:00 09/05/20 21:18 Sennosides 8.6 M g Tablet PO 17.2 mg BEDTIME NORAH Administration Tamsulosin HCl 0.4 mg 09/05/20 09:00 09/05/20 09:26 Tamsulosin 0.4 M g Capsule PO 0.4 mg DAILY NORAH Administration Additional Medication Information: Home medications include Tylenol, bisacodyl, milk of magnesia, amlodipine, aspirin, atorvastatin, divalproex sprinkles, Flomax, Seroquel. It looks like patient was started on Cipro and acidophilus on August 26 for urinary tract infection PFSH Anesthesia PFSH: Medical History (Updated 09/05/20 @ 16:29 by Spencer Zurita MD) Dementia with behavioral problem Dyslipidemia Essential hypertension History of CVA (cerebrovascular accident) History of urinary retention Seizure disorder Social History (Updated 09/05/20 @ 01:55 by Yudith Maddox MD) Housing: Retirement Supplemental PFSH Information: To obtain surgical or family history secondary to mental status. Unknown social history beyond residing at facility. Data Anesthesia CBC & Chem 7: 09/05/20 05:15 09/06/20 02:25 Other Labs: Laboratory Results - last 48 hr 09/04/20 09/04/20 09/04/20 19:30 19:40 19:40 WBC 10.1 H RBC 3.80 L Hgb 11.0 L Hct 34.4 L MCV 90.5 MCH 28.9 MCHC 32.0 RDW 17.9 H Plt Count 325 MPV 10.5 H Neut % (Auto) 70.4 Lymph % (Auto) 16.3 [place] % (Auto) 8.6 Eos % (Auto) 3.2 Baso % (Auto) 0.5 Neut # (Auto) 7.11 Lymph # (Auto) 1.6 [place] # (Auto) 0.9 Eos # (Auto) 0.3 Baso # (Auto) 0.1 Nucleated RBC % (auto) 0 Nucleated RBCs # 0.0 PT 15.40 H INR 1.19 APTT 29.4 Sodium Potassium Chloride Carbon Dioxide Anion Gap BUN Creatinine GFR Calculation Glucose Calculated Osmolality Calcium Magnesium Total Bilirubin AST ALT Alkaline Phosphatase Creatine Kinase Total Protein Albumin Globulin Urine Color Yellow Urine Appearance Clear Urine pH 5 Ur Specific [place] 1.020 Urine Protein Neg Urine Glucose (UA) Norm Urine Ketones Negative Urine Blood Neg Urine Nitrate Negative Urine Bilirubin Neg Urine Urobilinogen Norm Ur Leukocyte Esterase Trace H Urine RBC None Urine WBC 0-4 H Ur Squamous Epith Cells 0-4 H Amorphous Sediment Not Reportable Urine Bacteria None Valproic Acid SARS-CoV-2 Ag (Rapid) Blood Type Rho(D) Type Antibody Screen 09/04/20 09/04/20 09/04/20 19:40 19:40 21:50 WBC RBC Hgb Hct MCV MCH MCHC RDW Plt Count MPV Neut % (Auto) Lymph % (Auto) [place] % (Auto) Eos % (Auto) Baso % (Auto) Neut # (Auto) Lymph # (Auto) [place] # (Auto) Eos # (Auto) Baso # (Auto) Nucleated RBC % (auto) Nucleated RBCs # PT INR APTT Sodium 139 Potassium 3.9 Chloride 105 Carbon Dioxide 27 Anion Gap 10.9 BUN 17 Creatinine 0.5 L GFR Calculation Not Reportable Glucose 77 Calculated Osmolality 288 Calcium 9.0 Magnesium Total Bilirubin 1.3 H AST 29 ALT 20 Alkaline Phosphatase 85 Creatine Kinase 87 Total Protein 5.6 L Albumin 3.1 L Globulin 2.5 Urine Color Urine Appearance Urine pH Ur Specific [place] Urine Protein Urine Glucose (UA) Urine Ketones Urine Blood Urine Nitrate Urine Bilirubin Urine Urobilinogen Ur Leukocyte Esterase Urine RBC Urine WBC Ur Squamous Epith Cells Amorphous Sediment Urine Bacteria Valproic Acid 13.6 L SARS-CoV-2 Ag (Rapid) Negative Blood Type Rho(D) Type Antibody Screen 09/05/20 09/05/20 09/06/20 05:15 05:15 02:25 WBC 9.6 RBC 3.58 L Hgb 10.4 L Hct 33.0 L MCV 92.2 MCH 29.1 MCHC 31.5 RDW 17.9 H Plt Count 299 MPV 10.5 H Neut % (Auto) 68.6 Lymph % (Auto) 16.9 [place] % (Auto) 8.9 Eos % (Auto) 3.7 Baso % (Auto) 0.7 Neut # (Auto) 6.60 Lymph # (Auto) 1.6 [place] # (Auto) 0.9 Eos # (Auto) 0.4 Baso # (Auto) 0.1 Nucleated RBC % (auto) 0 Nucleated RBCs # 0.0 PT INR APTT Sodium 139 Potassium 4.4 Chloride 105 Carbon Dioxide 26 Anion Gap 12.4 BUN 10 Creatinine 0.4 L GFR Calculation Not Reportable Glucose 104 Calculated Osmolality 287 Calcium 8.3 L Magnesium 1.8 Total Bilirubin AST ALT Alkaline Phosphatase Creatine Kinase Total Protein Albumin Globulin Urine Color Urine Appearance Urine pH Ur Specific [place] Urine Protein Urine Glucose (UA) Urine Ketones Urine Blood Urine Nitrate Urine Bilirubin Urine Urobilinogen Ur Leukocyte Esterase Urine RBC Urine WBC Ur Squamous Epith Cells Amorphous Sediment Urine Bacteria Valproic Acid SARS-CoV-2 Ag (Rapid) Blood Type O Positive Rho(D) Type Positive / 4+ Antibody Screen Negative Cardiac Studies: No Data to Display
--- NOTE | 2020-09-06 07:13 | PC.NURSE ---
patient in OR
--- NOTE | 2020-09-06 08:04 | PM.OP ---
Operative Report Date of procedure: September 06, 2020 Pre-op Diagnosis: right intertrochanteric hip fracture Post-op diagnosis: same Post-op Findings: Same Procedure Done: Open reduction internal fixation right hip with intramedullary device Implants: [place] Gamma nail 11 x 350mm, 110 mm leg Pathology: none sent Surgeon: Spencer Zurita Anesthesia: General Estimated blood loss (mL): 25 Complications: None Findings: The patient had a comminuted right intertrochanteric and head and neck fragment Condition: stable Disposition: PACU Procedure: The patient was taken to the operating room. They were given 1 g of Ancef. They were positioned on the fracture table with the right lower extremity in gentle traction. A timeout was performed. A 2 cm long incision was made proximal to the greater trochanter scalpel blade. Dissection was carried down to tip the greater trochanter. A guidepin was passed manually from the tip of the trochanter down the shaft. The proximal reamer was utilized to open up the proximal canal. An 11 mm by 360 mm [place] gamma nail was passed down the canal without difficulty. Under visualization of fluoroscopy a guidepin was driven up into the head and neck at 125? angle. It was measured at 110 mm in length and a lag screw similar length was then placed and locked into place with the proximal locking screw. Intraoperative imaging was obtained verifying satisfactory position of the hardware and reduction of the fracture. Deep tissues were closed with 0 Vicryl as were subcutaneous tissues. The skin was closed with skin nathaly. Sterile dressings were applied. The patient was extubated and taken to recovery room in stable condition.
[2020-09-06] MEDS: fentaNYL 50 mcg/mL INJ 2mL IVP ×2 (08:14→08:19)
--- NOTE | 2020-09-06 08:29 | SUR.PHASEI ---
0815 PEDAL PULSE PALPATED, CAP REFILL <3 SEC, FIRST ICE APPLIED
[2020-09-06] MEDS: sennosides-docusate Tablet 2 TAB PO ×2 (10:10→18:17)
[2020-09-06] MEDS: mupirocin oint 22 gm 1 APPLIC NASAL ×2 (10:12→18:24)
[2020-09-06] MEDS: ciprofloxacin 500 mg Tablet PO (10:12)
[2020-09-06] MEDS: chlorhexidine gluconate 0.12% Btl 473 mL 30 ML MUCOUS MEM ×3 (10:13→17:34)
[2020-09-06] MEDS: sodium chloride 0.9% 1,000 ML 100 ML IV ×2 (10:23→20:32)
[2020-09-06] MEDS: HYDROcodone-acetaminophen 5-325 mg Tablet 1 TAB PO (12:39)
--- NOTE | 2020-09-06 17:04 | ANE.PACU2 ---
Inpatient post-anesthesia follow up: Airway intact: Yes Vital signs: Temperature 98.2 F Pulse Rate [Left] 86 Pulse Rate 74 Respiratory Rate 12 Blood Pressure [Ri ght Arm] 114/63 Blood Pressure 107/55 Pulse Oximetry 94 Oxygen Delivery Me thod [ Room Air Current Rate & Del dulce maria] Oxygen Delivery Me thod Room Air Oxygen Flow Rate 8 Fraction of Inspir ed Oxygen Hydration adequate: Yes Nausea and vomiting: No Pain level: 2 Mental status: Baseline
--- NOTE | 2020-09-06 17:34 | P.PN_ITS ---
Subjective Subjective: Interval history: Hospital course appreciated. Today morning seen postoperatively. Denies any nausea vomiting, groggy. Tolerated procedure well. Postoperatively hemodynamically stable. Medications: Reviewed: Yes Medication Review Details: Home medications include Tylenol, bisacodyl, milk of magnesia, amlodipine, aspirin, atorvastatin, divalproex sprinkles, Flomax, Seroquel. It looks like patient was started on Cipro and acidophilus on August 26 for urinary tract infection Vitals/I&O/Wt Last Vital Signs Temp 98.2 F 09/06/20 16:00 Pulse 74 09/06/20 16:00 Resp 12 09/06/20 16:00 BP 107/55 09/06/20 16:00 Pulse Ox 94 09/06/20 16:00 09/06/20 09/06/20 09/06/20 06:59 14:59 22:59 Intake Total 945 / 945 Output Total 275 / 625 225 / 225 Balance -275 / 1270 720 / 720 Weight last 48 hrs Weight 68.039 kg Physical Exam Narrative: EXAM NARRATIVE: General: Postoperatively, drowsy, AO x3 when awake HEENT: PERRLA, pupils bilaterally equal and reactive Chest: Normal vesicular breath sounds, no added sounds, equal good air entry bilaterally CVS: S1-S2 regular, no murmurs, no tachycardia, no gallops, no rubs Abdomen: Soft, nontender, no organomegaly, bowel sounds present Neuro: No focal deficits, no facial deformity, AO x3, power 5/5 in all limbs Extremities: Surgically bandaged right, no saturation Urinary Catheter Management^: Ochoa: Cath Placed During This Visit: yes Urinary Catheter Date of Insertion: 09/04/20 Urinary Catheter Time of Insertion: 19:30 Data : 09/05/20 05:15 09/06/20 02:25 A&P Assessment and plan (1) Unwitnessed fall: In a gentleman with a history of prior falls who has a mattress on the karly or in [facility] room at the [facility] Status: Acute (2) Closed hip fracture: Status: Acute Qualifiers: Encounter type: initial encounter Laterality: right Qualified Code(s): S72.001A - Fracture of unspecified part of neck of right femur, initial encounter for closed fracture (3) Anemia: Status: Acute Qualifiers: Anemia type: other cause Other causes of anemia: acute posthemorrhagic Qualified Code(s): D62 - Acute posthemorrhagic anemia (4) 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 around August 25 Status: Chronic Qualifiers: Dementia type: unspecified type Qualified Code(s): F03.91 - Unspecified dementia with behavioral disturbance (5) Seizure disorder: Chronically on divalproex sprinkles Status: Chronic (6) Essential hypertension: Normally on the amlodipine Status: Chronic (7) Dyslipidemia: Chronically on statin Status: Chronic (8) History of urinary retention: Chronically on Flomax Status: Chronic (9) Dysphagia: Details unknown Status: Chronic Qualifiers: Dysphagia type: unspecified Qualified Code(s): R13.10 - Dysphagia, u nspecified (10) History of CVA (cerebrovascular accident): Unknown baseline Status: Chronic Additional A&P Information Fall with right hip fracture Postoperative day 0. Pain management, physical therapy, perioperative antibiotics, anticoagulation as per orthopedic team. Seizure Disorder Continue divlproex Seizure precautions Level ordered pending Acute Blood Loss Anemia Monitor hemoglobin. H/H in am Iron studies in am Urinary retention s/p ochoa Flomax Monitor u/o Hypertension: G Goal blood pressure less than 140/90 emergency. Blood pressure soft. For now hold off on home dose of amlodipine. We will continue to monitor. Additional Medical Problems Advanced Dementia Hypertension Dyslipidemia Dysphagia Allow natural . Anticoagulation as per surgical team. Protonix OPD prophylaxis. Attestations Medical Necessity Statement*: Requires further hospitalization for postoperative care for right hip fracture Time Spent in Patient Care: Greater than 35 minutes (>than 50% of time spent in counselling and/or direct pt care on unit) . Coding Level of Care Code Acute Security System Installer for [facility] Fwd Diagnoses Unwitnessed fall R29.6 Closed hip fracture S72.001A Encounter type: initial encounter Laterality: right Anemia D62 Anemia type: other cause Other causes of anemia: acute posthemorrhagic Dementia with behavioral problem F03.91 Dementia type: unspecified type Seizure disorder G40.909 Essential hypertension I10 Dyslipidemia E78.5 History of urinary retention Z87.898 Dysphagia R13.10 Dysphagia type: unspecified History of CVA (cerebrovascular accident) Z86.73
[2020-09-06 18:31] LABS: Iron 16 ug/dL (59-158); Percent Saturation 10.3 % (20-50); Thyroid Stimulating Hormone 2.04 uIU/mL (0.27-4.20); Total Iron Binding Capacity 154 mcg/dl; Unsaturated Iron Binding 138 ug/dL (112-347)
[2020-09-06] MEDS: divalproex Sprinkles 125 mg Capsule PO (20:31)
[2020-09-06] MEDS: atorvastatin 40 mg Tablet PO (20:31)
[2020-09-06] MEDS: enoxaparin 40 mg/0.4 mL Syringe SUBCUT (20:31)
[2020-09-07] MEDS: HYDROcodone-acetaminophen 5-325 mg Tablet 1 TAB PO ×3 (00:49→16:14)
[2020-09-07 03:57] LABS: Quest SARS-CoV-2 RNA NOT DETECTED (NOT DETECTED)
[2020-09-07 04:00] VITALS: BP 108/64; PULSE 82; RESP 16; TEMP 36.5; O2SAT 100
[2020-09-07] MEDS: sodium chloride 0.9% 1,000 ML 100 ML IV (06:08)
[2020-09-07 07:04] LABS: Basophils # 0.1 10^3/uL (0.0-0.1); Basophils % 0.5 %; Eosinophils # 0.3 10^3/uL (0.0-0.8); Eosinophils % 2.5 %; Hematocrit 29.5 % (42.0-52.0); Hemoglobin 9.1 g/dL (11.7-16.6); Lymphocytes # 1.5 10^3/uL (0.8-4.8); Lymphocytes % 11.6 %; Mean Corpuscular HGB Conc 30.8 g/dL (30.0-36.0); Mean Corpuscular Hemoglobin 28.9 pg (28.0-34.0); Mean Corpuscular Volume 93.7 fL (80-94); Mean Platelet Volume 10.3 fL (7.4-10.4); Monocytes # 0.8 10^3/uL (0.2-0.9); Monocytes % 6.3 %; Neutrophils # 10.05 10^3/uL (1.8-7.7); Neutrophils % 78.1 %; Nucleated Red Blood Cells % 0 %; Platelet Count 292 10^3/cmm (130-400); Red Blood Count 3.15 10^6/uL (4.1-5.3); Red Cell Distribution Width 17.5 % (12.1-15.1); White Blood Count 12.9 10^3/uL (4.0-10.0)
[2020-09-07 07:20] LABS: Chloride 107 mmol/L (98-107); Potassium 4.2 mmol/L (3.5-5.1); Sodium 137 mmol/L (136-145)
[2020-09-07 07:51] LABS: Anion Gap 10.2 (5-19); Blood Urea Nitrogen 7 mg/dL (8-23); Calcium 7.8 mg/dL (8.5-10.5); Carbon Dioxide 24 mmol/L (22-29); Glucose 103 mg/dL (65-115); Osmolality Calculated 282 mOsm/kg (285-295)
[2020-09-07 07:54] VITALS: BP 125/58; PULSE 82; RESP 18; TEMP 36.6; O2SAT 100
--- NOTE | 2020-09-07 08:23 | P.PN_ITS ---
Subjective Subjective: Interval history: Patient more alert. Some p.o. intake with nursing assist. Vitals/I&O/Wt Last Vital Signs Temp 97.8 F 09/07/20 07:54 Pulse 82 09/07/20 07:54 Resp 18 09/07/20 07:54 BP 125/58 09/07/20 07:54 Pulse Ox 100 09/07/20 07:54 09/06/20 09/07/20 09/07/20 22:59 06:59 14:59 Intake Total 1050 / 2355 1250 / 3605 Output Total 300 / 525 400 / 925 Balance 750 / 1830 850 / 2680 Physical Exam Narrative: EXAM NARRATIVE: Right hip dressings clean and dry right hip dressings clean and dry. Minimal swelling right thigh. Urinary Catheter Management^: Henderson: Cath Placed During This Visit: yes Urinary Catheter Date of Insertion: 09/04/20 Urinary Catheter Time of Insertion: 19:30 Data : 09/07/20 06:32 09/07/20 06:32 A&P Assessment and plan (1) Intertrochanteric fracture of right hip: Status: Acute (2) Postoperative state: May mobilize with physical may mobilize with physical therapy. With underlying dementia will progress slowly. Okay for SNF discharge per Ortho Status: Acute Attestations Medical Necessity Statement*: As per medicine. Okay for discharge from an orthopedic perspective. Coding Level of Care Code Acute Assistant Manager Bilingual for Curtis Dwyer Diagnoses Intertrochanteric fracture of right hip S72.141A Postoperative state Z98.890
[2020-09-07] MEDS: tamsulosin 0.4 mg Capsule PO (08:38)
[2020-09-07] MEDS: sennosides-docusate Tablet 2 TAB PO ×2 (08:38→16:27)
[2020-09-07] MEDS: aspirin 81 mg EC Tablet PO (08:38)
[2020-09-07] MEDS: divalproex Sprinkles 125 mg Capsule PO (08:38)
[2020-09-07] MEDS: mupirocin oint 22 gm 1 APPLIC NASAL ×2 (08:41→17:34)
[2020-09-07] MEDS: chlorhexidine gluconate 0.12% Btl 473 mL 30 ML MUCOUS MEM ×3 (08:41→17:34)
--- NOTE | 2020-09-07 09:53 | PC.NURSE ---
Received telephone order from Dr. Gurrola to discontinue isolation precautions.
--- NOTE | 2020-09-07 11:09 | PC.NURSE ---
Urine Output Urine was eula colored and uncloudy no oder
[2020-09-07 12:00] VITALS: BP 110/57; PULSE 83; RESP 17; TEMP 37.2; O2SAT 100
--- NOTE | 2020-09-07 14:45 | PC.OT ---
OT NOTE: OT EVALUATION ORDERS RECEIVED. OT EVALUATION ATTEMPTED. PATIENT IS ALERT TO PERSON ONLY. CAN NOT ANSWER ANY FURTHER QUESTIONS; , PAIN, ETC. IS UNABLE TO FOLLOW DIRECTIONS TO EVEN MOVE HIS HANDS. PER DISCUSSION WITH SNF; PATIENT IS 1 ASSIST FOR TRANSFERS, DEPENDENT IN ADLS. PATIENT IS NOT A REHAB CANDIDATE. NO FURTHER SKILLED OT REQUIRED AT THIS TIME.
--- NOTE | 2020-09-07 14:54 | PC.NUTR ---
Nutrition note: Will send Ensure clear with meals per nurse request. Reports pt enjoys this supplement. Will follow up as appropriate.
[2020-09-07 15:16] VITALS: BP 110/58; PULSE 91; RESP 18; TEMP 37.1; O2SAT 100
--- NOTE | 2020-09-07 15:36 | PM.PN ---
Subjective Subjective: Interval history: Documents overnight. Patient working appropriately with physical therapy due to limited because of mental status. Patient more alert. Some p.o. intake with nursing assist. Medications: Reviewed: Yes Medication Review Details: Home medications include Tylenol, bisacodyl, milk of magnesia, amlodipine, aspirin, atorvastatin, divalproex sprinkles, Flomax, Seroquel. It looks like patient was started on Cipro and acidophilus on August 26 for urinary tract infection Vitals/I&O/Wt Last Vital Signs Temp 98.7 F 09/07/20 15:16 Pulse 91 09/07/20 15:16 Resp 18 09/07/20 15:16 BP 110/58 09/07/20 15:16 Pulse Ox 100 09/07/20 15:16 09/07/20 09/07/20 09/07/20 06:59 14:59 22:59 Intake Total 1250 / 3605 686.667 / 686.667 Output Total 400 / 925 250 / 250 Balance 850 / 2680 436.667 / 436.667 Physical Exam Narrative: EXAM NARRATIVE: General: No acute distress, AO x1-2 HEENT: PERRLA, pupils bilaterally equal and reactive Chest: Normal vesicular breath sounds, no added sounds, equal good air entry bilaterally CVS: S1-S2 regular, no murmurs, no tachycardia, no gallops, no rubs Abdomen: Soft, nontender, no organomegaly, bowel sounds present Neuro: No focal deficits, no facial deformity, AO x3, power 5/5 in all limbs Extremities: Surgically bandaged right, no saturation Urinary Catheter Management^: Ocho[place]: Cath Placed During This Visit: yes, but has since been removed by the nurse Reason for Continuing Indwelling Catheter: Decision to DC Catheter Urinary Catheter Date of Insertion: 09/04/20 Urinary Catheter Time of Insertion: 19:30 Date Urinary Catheter Removed: 09/07/20 Time Urinary Catheter Discontinued: 11:00 Data : 09/07/20 06:32 09/07/20 06:32 A&P Assessment and plan (1) Unwitnessed fall: In a gentleman with a history of prior falls who has a mattress on the floor in his room at the correction Status: Acute (2) Closed hip fracture: Status: Acute Qualifiers: Encounter type: initial encounter Laterality: right Qualified Code(s): S72.001A - Fracture of unspecified part of neck of right femur, initial encounter for closed fracture (3) Anemia: Status: Acute Qualifiers: Anemia type: other cause Other causes of anemia: acute posthemorrhagic Qualified Code(s): D62 - Acute posthemorrhagic anemia (4) 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 around August 25 Status: Chronic Qualifiers: Dementia type: unspecified type Qualified Code(s): F03.91 - Unspecified dementia with behavioral disturbance (5) Seizure disorder: Chronically on divalproex sprinkles Status: Chronic (6) Essential hypertension: Normally on the amlodipine Status: Chronic (7) Dyslipidemia: Chronically on statin Status: Chronic (8) History of urinary retention: Chronically on Flomax Status: Chronic (9) Dysphagia: Details unknown Status: Chronic Qualifiers: Dysphagia type: unspecified Qualified Code(s): R13.10 - Dysphagia, unspecified (10) History of CVA (cerebrovascular accident): Unknown baseline Status: Chronic Additional A&P Information Fall with right hip fracture Postoperative day 1. Pain management with [place] 5 every 8 hours as needed Physical therapy, Aspirin and Lovenox for anticoagulation as per orthopedic team. Seizure Disorder Continue divlproex Seizure precautions Divalproex level ordered Acute Blood Loss Anemia: Monitor hemoglobin. H/H in am Start patient on iron supplementation Panel. Urinary retention s/p ochoa Flomax Monitor u/o Hypertension: Goal blood pressure less than 140/90 mmhg. Blood pressure soft. For now hold off on home dose of amlodipine. We will continue to monitor. Additional Medical Problems Advanced Dementia Hypertension Dyslipidemia Dysphagia Allow natural . Lovenox for DVT prophylaxis. Protonix OPD prophylaxis. Discharge planning: If patient continues to do appropriately with physical therapy and hemoglobin remained stable can plan to discharge back to correction tomorrow. Attestations Medical Necessity Statement*: Requires further hospitalization for postoperative care for right hip fracture Time Spent in Patient Care: Greater than 35 minutes (>than 50% of time spent in counselling and/or direct pt care on unit). Coding Level of Care Code Acute Property Site Manager for [facility] Fwd Diagnoses Unwitnessed fall R29.6 Closed hip fracture S72.001A Encounter type: initial encounter Laterality: right Anemia D62 Anemia type: other cause Other causes of anemia: acute posthemorrhagic Dementia with behavioral problem F03.91 Dementia type: unspecified type Seizure disorder G40.909 Essential hypertension I10 Dyslipidemia E78.5 History of urinary retention Z87.898 Dysphagia R13.10 Dysphagia type: unspecified History of CVA (cerebrovascular accident) Z86.73
[2020-09-07] MEDS: ferrous gluconate 324 mg Tablet PO (16:28)
--- NOTE | 2020-09-07 18:22 | PC.NURSE ---
bladder scanned patient and results are 215mL. notified Dr Messer.
[2020-09-07 19:20] VITALS: BP 120/63; PULSE 104; RESP 18; TEMP 37.3; O2SAT 100
[2020-09-07] MEDS: enoxaparin 40 mg/0.4 mL Syringe SUBCUT (20:46)
[2020-09-07 23:40] VITALS: BP 120/69; PULSE 100; RESP 18; TEMP 37.6; O2SAT 100
[2020-09-08 03:55] VITALS: BP 138/71; PULSE 97; RESP 18; TEMP 36.8; O2SAT 96
[2020-09-08] MEDS: HYDROcodone-acetaminophen 5-325 mg Tablet 1 TAB PO (04:19)
[2020-09-08 07:04] LABS: Basophils # 0.1 10^3/uL (0.0-0.1); Basophils % 0.3 %; Eosinophils % 0.1 %; Hematocrit 25.5 % (42.0-52.0); Hemoglobin 8.1 g/dL (11.7-16.6); Lymphocytes % 6.4 %; Mean Corpuscular HGB Conc 31.8 g/dL (30.0-36.0); Mean Corpuscular Hemoglobin 28.8 pg (28.0-34.0); Mean Corpuscular Volume 90.7 fL (80-94); Mean Platelet Volume 10.4 fL (7.4-10.4); Monocytes # 0.7 10^3/uL (0.2-0.9); Monocytes % 4.4 %; Nucleated Red Blood Cells % 0 %; Platelet Count 299 10^3/cmm (130-400); Red Blood Count 2.81 10^6/uL (4.1-5.3); Red Cell Distribution Width 17.1 % (12.1-15.1); White Blood Count 15.9 10^3/uL (4.0-10.0)
[2020-09-08 07:26] LABS: Alanine Aminotransferase 7 U/L (0-41); Albumin Level 2.4 g/dL (3.5-5.2); Alkaline Phosphatase 102 IU/L (40-130); Anion Gap 11.4 (5-19); Aspartate Amino Transferase 23 U/L (0-40); Blood Urea Nitrogen 9 mg/dL (8-23); Calcium 7.7 mg/dL (8.5-10.5); Carbon Dioxide 25 mmol/L (22-29); Chloride 104 mmol/L (98-107); Globulin 2.6 g/dL (1.3-4.6); Glucose 130 mg/dL (65-115); Osmolality Calculated 284 mOsm/kg (285-295); Potassium 3.4 mmol/L (3.5-5.1); Sodium 137 mmol/L (136-145); Total Bilirubin 1.2 mg/dL (0.15-1.2)
[2020-09-08 08:45] VITALS: BP 120/54; PULSE 94; RESP 17; TEMP 36.8; O2SAT 99
--- NOTE | 2020-09-08 08:55 | PC.NURSE ---
Patient refused all meds this morning. Would not follow commands this morning and was very agitated during assessment as well.
--- NOTE | 2020-09-08 09:28 | XR_ITS ---
WS: [id number] Portable AP upright chest, 09/08/2020 Clinical Data: post op Comparison: None. Findings: No nodules, masses or effusions are seen. The heart is normal. The pulmonary vascularity is not increased. No pneumonia or pneumothorax is seen. The aortic arch and descending aorta show calci fication and tortuosity. There are healed fractures of the right posterior lateral fourth and fifth r ibs. XR/XR chest 1V portable [id number] Impression: Atherosclerosis.
[2020-09-08] MEDS: potassium chloride ER 20 mEq Tablet 40 MEQ PO (11:13)
[2020-09-08 12:20] VITALS: BP 122/61; PULSE 82; RESP 14; TEMP 36.6; O2SAT 95
[2020-09-08 14:04] LABS: Add Urine Culture? No; Bilirubin Urine 1+ (Negative); Blood Urine Neg (Negative); Glucose Urine UA Trace (Normal); Ketones Urine 1+ (Negative); Leukocyte Esterase Urine Negative (Negative); Mucus Urine 2+ /hpf; Nitrate Urine Negative (Negative); Protein Urine Trace (Negative); RBC Urine 0-4 /hpf (0-2); Urine Appearance Clear (CLEAR); Urine Color Yellow (Yellow); Urobilinogen Urine 8 mg/dL (Negative); WBC Urine 0-4 /hpf (0-5); pH Urine 5 (5-7)
--- NOTE | 2020-09-08 14:39 | PM.DCS ---
Discharge Providers Date of Admission: 09/04/20 21:29 Date of Discharge: September 08, 2020 Attending Provider at Admission: Yudith Maddox MD Attending Provider at Discharge: Donaldo Messer MD Consults: Orthopedics: Dr. Zurita Primary Care Provider: Surya Song DO Diagnoses at Discharge Discharge Diagnosis (1) Unwitnessed fall: Status: Acute (2) Closed hip fracture: Status: Acute Qualifiers: Encounter type: initial encounter Laterality: right Qualified Code(s): S72.001A - Fracture of unspecified part of neck of right femur, initial encounter for closed fracture (3) Anemia: Status: Acute Qualifiers: Anemia type: other cause Other causes of anemia: acute posthemorrhagic Qualified Code(s): D62 - Acute posthemorrhagic anemia (4) Dementia with behavioral problem: Status: Chronic Qualifiers: Dementia type: unspecified type Qualified Code(s): F03.91 - Unspecified dementia with behavioral disturbance (5) Seizure disorder: Status: Chronic (6) Essential hypertension: Status: Chronic (7) Dyslipidemia: Status: Chronic (8) History of urinary retention: Status: Chronic (9) Dysphagia: Status: Chronic Qualifiers: Dysphagia type: unspecified Qualified Code(s): R13.10 - Dysphagia, unspecified (10) History of CVA (cerebrovascular accident): Status: Chronic Reason for Visit Reason for Visit: RIGHT LEG PAIN Hospital Course Hospital Course Raimundo Lepe is a 79 year old male who presented from [facility] after being found on the floor. Mr. Lepe has dementia and is a known fall risk at the facility. He does have a mattress on the floor in his room according to ER records. When he was found by staff, he had a visual deformity to the right lower extremity and was sent to the emergency room for evaluation. He was found to have an intertrochanteric fracture of the right hip. Case was discussed with orthopedics by the ER physician. He is being admitted for management. Rapid Covid antigen was negative. It looks like at baseline patient is known to have behavioral disturbances including crawling on the floor, counting, some increased agitation, taking off diaper. Symptoms worse at night. Had been on haldol for a while but changed to seroquel at bedtime 08/24. No history is able to be obtained from the patient. He keeps trying to move around and requires reminder that he hurts because he has a fracture. He does have outside of hospital DO NOT RESUSCITATE paperwork that was sent with him. He has a legally appointed guardian. Her name is Virgen Sequeira cell phone #[phone] and office #[phone]. Patient admitted to hospital for further management of intertrochanteric fracture of right hip. Patient underwent ORIF after consent from [employer] SUPERVISOR on September 06. Patient tolerated procedure well. Postoperatively physical therapy has been challenging given his mental status. Patient is at his baseline mental status, pleasantly confused, AO x1-2. Because of concerns of aspiration because of his mentation swallow evaluation was done. Patient's hospitalization was otherwise unremarkable. He is been discharged hemodynamic stable condition with advised to follow-up with primary care provider within next 7 days, Dr. Zurita from orthopedics in 1 month. He is to take Augmentin for 5 days to finish a course of antibiotics. Physical Exam Urinary Catheter Management^: [place]: Cath Placed During This Visit: yes, but has since been removed by the nurse Reason for Continuing Indwelling Catheter: Accurate Measurement of Urinary Output in Critically Ill Patients Urinary Catheter Date of Insertion: 09/08/20 Urinary Catheter Time of Insertion: 05:00 Date Urinary Catheter Removed: 09/07/20 Time Urinary Catheter Discontinued: 11:00 Discharge Data Data Completed and Pending: Completed Studies During Hospitalization Category Date Time Status XR chest 1V adama ble [id number] Routine Exams 09/08/20 09:28 Completed XR chest 1V adama ble [id number] Urgent Exams 09/04/20 19:14 Completed XR femur RT min 2 V* [id number] Routine Exams 09/06/20 Completed XR hip RT 2-3V wo /w pel* [id number] Stat Exams 09/04/20 19:14 Completed Labs from last 24 hours 09/08/20 09/08/20 09/08/20 12:53 06:15 06:15 WBC RBC Hgb Hct MCV MCH MCHC RDW Plt Count MPV Neut % (Auto) Lymph % (Auto) Ashley % (Auto) Eos % (Auto) Baso % (Auto) Neut # (Auto) Lymph # (Auto) Ashley # (Auto) Eos # (Auto) Baso # (Auto) Nucleated RBC % (a uto) Nucleated RBCs # Sodium 137 Potassium 3.4 L Chloride 104 Carbon Dioxide 25 Anion Gap 11.4 BUN 9 Creatinine 0.4 L GFR Calculation Not Reportable Glucose 130 H Calculated Osmolal ity 284 L Calcium 7.7 L Total Bilirubin 1.2 AST 23 ALT 7 Alkaline Phosphata se 102 Total Protein 5.0 L Albumin 2.4 L Globulin 2.6 Procalcitonin 0.10 Urine Color Yellow Urine Appearance Clear Urine pH 5 Ur Specific Gravit y 1.020 Urine Protein Trace Urine Glucose (UA) Trace H Urine Ketones 1+ H Urine Blood Neg Urine Nitrate Negative Urine Bilirubin 1+ H Urine Urobilinogen 8 H Ur Leukocyte Jerrica ase Negative Urine RBC 0-4 H Urine WBC 0-4 H Ur Squamous Epith Cells None Amorphous Sediment Not Reportable Urine Bacteria None Urine Mucus 2+ 09/08/20 06:15 WBC 15.9 H RBC 2.81 L Hgb 8.1 L Hct 25.5 L MCV 90.7 MCH 28.8 MCHC 31.8 RDW 17.1 H Plt Count 299 MPV 10.4 Neut % (Auto) 88.0 Lymph % (Auto) 6.4 Ashley % (Auto) 4.4 Eos % (Auto) 0.1 Baso % (Auto) 0.3 Neut # (Auto) 14.00 H Lymph # (Auto) 1.0 Ashley # (Auto) 0.7 Eos # (Auto) 0.0 Baso # (Auto) 0.1 Nucleated RBC % (a uto) 0 Nucleated RBCs # 0.0 Sodium Potassium Chloride Carbon Dioxide Anion Gap BUN Creatinine GFR Calculation Glucose Calculated Osmolal ity Calcium Total Bilirubin AST ALT Alkaline Phosphata se Total Protein Albumin Globulin Procalcitonin Urine Color Urine Appearance Urine pH Ur Specific Gravit y Urine Protein Urine Glucose (UA) Urine Ketones Urine Blood Urine Nitrate Urine Bilirubin Urine Urobilinogen Ur Leukocyte Jerrica ase Urine RBC Urine WBC Ur Squamous Epith Cells Amorphous Sediment Urine Bacteria Urine Mucus Addt'l Data from Hospital Stay: Laboratory Results WBC 15.9 10^3/uL (4.0 -10.0) H 09/08/20 06:15 RBC 2.81 10^6/uL (4.1 -5.3) L 09/08/20 06:15 Hgb 8.1 g/dL (11.7-16 .6) L 09/08/20 06:15 Hct 25.5 % (42.0-52.0 ) L 09/08/20 06:15 MCV 90.7 fL (80-94) 09/08/20 06:15 MCH 28.8 pg (28.0-34. 0) 09/08/20 06:15 MCHC 31.8 g/dL (30.0-3 6.0) 09/08/20 06:15 RDW 17.1 % (12.1-15.1 ) H 09/08/20 06:15 Plt Count 299 10^3/cmm (130 -400) 09/08/20 06:15 MPV 10.4 fL (7.4-10.4 ) 09/08/20 06:15 Neut % (Auto) 88.0 % 09/08/20 06:15 Lymph % (Auto) 6.4 % 09/08/20 06:15 Ashley % (Auto) 4.4 % 09/08/20 06:15 Eos % (Auto) 0.1 % 09/08/20 06:15 Baso % (Auto) 0.3 % 09/08/20 06:15 Neut # (Auto) 14.00 10^3/uL (1. 8-7.7) H 09/08/20 06:15 Lymph # (Auto) 1.0 10^3/uL (0.8- 4.8) 09/08/20 06:15 Ashley # (Auto) 0.7 10^3/uL (0.2- 0.9) 09/08/20 06:15 Eos # (Auto) 0.0 10^3/uL (0.0- 0.8) 09/08/20 06:15 Baso # (Auto) 0.1 10^3/uL (0.0- 0.1) 09/08/20 06:15 Nucleated RBC % (a uto) 0 % 09/08/20 06:15 Nucleated RBCs # 0.0 /100WBC 09/08/20 06:15 PT 15.40 SECONDS (12 .1-14.9) H 09/04/20 19:40 INR 1.19 (0.8-1.2) 09/04/20 19:40 APTT 29.4 SECONDS (23. 9-36.7) 09/04/20 19:40 Sodium 137 mmol/L (136-1 45) 09/08/20 06:15 Potassium 3.4 mmol/L (3.5-5 .1) L 09/08/20 06:15 Chloride 104 mmol/L (98-10 7) 09/08/20 06:15 Carbon Dioxide 25 mmol/L (22-29) 09/08/20 06:15 Anion Gap 11.4 (5-19) 09/08/20 06:15 BUN 9 mg/dL (8-23) 09/08/20 06:15 Creatinine 0.4 mg/dL (0.7-1. 2) L 09/08/20 06:15 GFR Calculation Not Reportable 09/08/20 06:15 Glucose 130 mg/dL (65-115 ) H 09/08/20 06:15 Calculated Osmolal ity 284 mOsm/kg (285- 295) L 09/08/20 06:15 Calcium 7.7 mg/dL (8.5-10 .5) L 09/08/20 06:15 Magnesium 1.8 mg/dL (1.7-2. 3) 09/06/20 02:25 Iron 16 ug/dL (59-158) L 09/06/20 02:25 TIBC 154 mcg/dl 09/06/20 02:25 % Saturation 10.3 % (20-50) L 09/06/20 02:25 Unsat Iron Binding 138 ug/dL (112-34 7) 09/06/20 02:25 Total Bilirubin 1.2 mg/dL (0.15-1 .2) 09/08/20 06:15 AST 23 U/L (0-40) 09/08/20 06:15 ALT 7 U/L (0-41) 09/08/20 06:15 Alkaline Phosphata se 102 IU/L (40-130) 09/08/20 06:15 Creatine Kinase 87 U/L (39-308) 09/04/20 19:40 Total Protein 5.0 g/dL (6.6-8.7 ) L 09/08/20 06:15 Albumin 2.4 g/dL (3.5-5.2 ) L 09/08/20 06:15 Globulin 2.6 g/dL (1.3-4.6 ) 09/08/20 06:15 Procalcitonin 0.10 ng/mL (0-0.5 ) 09/08/20 06:15 TSH 2.04 uIU/mL (0.27 -4.20) 09/06/20 02:25 TSH Cancelled 09/06/20 02:25 Urine Color Yellow (Yellow) 09/08/20 12:53 Urine Appearance Clear (CLEAR) 09/08/20 12:53 Urine pH 5 (5-7) 09/08/20 12:53 Ur Specific Gravit y 1.020 (1.005-1.0 30) 09/08/20 12:53 Urine Protein Trace (Negative) 09/08/20 12:53 Urine Glucose (UA) Trace (Normal) H 09/08/20 12:53 Urine Ketones 1+ (Negative) H 09/08/20 12:53 Urine Blood Neg (Negative) 09/08/20 12:53 Urine Nitrate Negative (Negati ve) 09/08/20 12:53 Urine Bilirubin 1+ (Negative) H 09/08/20 12:53 Urine Urobilinogen 8 mg/dL (Negative ) H 09/08/20 12:53 Ur Leukocyte Jerrica ase Negative (Negati ve) 09/08/20 12:53 Urine RBC 0-4 /hpf (0-2) H 09/08/20 12:53 Urine WBC 0-4 /hpf (0-5) H 09/08/20 12:53 Ur Squamous Epith Cells None /hpf (0-5) 09/08/20 12:53 Amorphous Sediment Not Reportable 09/08/20 12:53 Urine Bacteria None /hpf (NONE) 09/08/20 12:53 Urine Mucus 2+ /hpf 09/08/20 12:53 Valproic Acid 13.6 ug/mL (50-10 0) L 09/04/20 19:40 SARS-CoV-2 RNA (RT -PCR) Not detected (NO T DETECTED) 09/05/20 05:15 SARS-CoV-2 Ag (Rap id) Negative (Negati ve) 09/04/20 21:50 Blood Type O Positive 09/05/20 05:15 Rho(D) Type Positive / 4+ 09/05/20 05:15 Antibody Screen Negative 09/05/20 05:15 Impressions Hip/Pelvis X-Ray 09/04/20 19:14 IMPRESSION: There are displaced comminuted fractures through the intertrochanteric right femur with adjacent free fracture fragments. Femur X-Ray 09/06/20 00:00 Impression: Internal fixation of right hip fracture. Chest X-Ray 09/08/20 09:28 Impression: Atherosclerosis. Vitals: Last Vital Signs Temp 97.8 F 09/08/20 12:20 Pulse 82 09/08/20 12:20 Resp 14 09/08/20 12:20 BP 122/61 09/08/20 12:20 Pulse Ox 95 09/08/20 12:20 Discharge Plan Discharge Patient Disposition: Home Condition: Stable Prescriptions: New ferrous gluconate 324 mg (37.5 mg iron) Tablet 324 mg PO BIDWM Qty: 60 RF: 0 amoxicillin-pot clavulanate [Augmentin] 500-125 mg tablet 1 tab PO BID Qty: 10 RF: 0 Continued atorvastatin 40 mg Tablet 40 mg PO DAILY@20 RF: 0 acetaminophen 325 mg Tablet 650 mg PO Q4H PRN (Reason: PAIN/TEMP) RF: 0 amlodipine 5 mg Tablet 5 mg PO DAILY@08 RF: 0 Aspir-81 81 mg Tablet,Delayed Release (Dr/Ec) 81 mg PO DAILY@08 RF: 0 Milk of Magnesia 400 mg/5 mL Suspension 30 ml PO DAILY PRN (Reason: Constipation) RF: 0 tamsulosin 0.4 mg Capsule 0.4 mg PO DAILY@08 RF: 0 bisacodyl 10 mg Suppository 10 mg OR DAILY PRN (Reason: Constipation) RF: 0 Acidophilus Capsule 1 cap PO BID RF: 0 divalproex 125 mg capsule, delayed rel sprinkle 125 mg PO BID@08,20 RF: 0 bisacodyl 5 mg Tablet 20 mg PO DAILY PRN (Reason: Constipation) RF: 0 quetiapine 50 mg tablet 50 mg PO BEDTIME@20 RF: 0 Discontinued Cipro 500 mg Tablet 500 mg PO BID RF: 0 Discharge Orders: Discharge Order (Routine); Ordered 09/08/20 Ordered By: Donaldo Messer Referrals: Surya Song DO [Primary Care Provider] - 7-10 days Spencer Zurita MD [Physician] - 1 month Discharge Diet: Advance as tolerated and As Directed Discharge Activity: Limit activity as instructed Patient Instructions: Opioid Safety Activity Restrictions/Additional Instructions: Change dressing as needed change dressing as needed for drainage. Okay to bathe or shower. May weight-bear as tolerated right lower extremity. Follow-up with a primary care provider within next 1 week. Discharge Attestations Time Spent in Discharge Care*: greater than 30 min Specific Discharge Activities: discussing with pcp/other providers, discussing with caseworker protective services/social workers/dc planners, documenting/other paperwork and evaluating patient/reviewing data Status at Discharge: Cognitive status at discharge: moderately impaired cognition, Behavioral status at discharge: cooperative, Functional status at discharge: other assisted ambulation Overall status at discharge: patient is progressing back to baseline Quality Metrics Clinical Quality Measures During this hospital stay, did patient experience: None Coding Level of Care Code Acute Chg FW DC note Diagnoses Unwitnessed fall R29.6 Closed hip fracture S72.001A Encounter type: initial encounter Laterality: right Anemia D62 Anemia type: other cause Other causes of anemia: acute posthemorrhagic Dementia with behavioral problem F03.91 Dementia type: unspecified type Seizure disorder G40.909 Essential hypertension I10 Dyslipidemia E78.5 History of urinary retention Z87.898 Dysphagia R13.10 Dysphagia type: unspecified History of CVA (cerebrovascular accident) Z86.73
--- NOTE | 2020-09-08 15:41 | PC.NURSE ---
Called report to Diane WATKINS at [facility] on patient. All questions answered at this time.
[2020-09-08 15:43] VITALS: BP 122/61; PULSE 82; RESP 14; TEMP 36.6; O2SAT 95
== END 2020-09-08 16:29 | disposition skilled nursing facility (03) | DRG 481 ==
LOC: ER 21:43 → MEDSURG 21:58
PROVIDERS: Orthopaedic Surgery; Admitting Provider Hospitalist; Emergency Provider Emergency Medicine; PCP Family Medicine; Visit Provider Student in an Organized Health Care Education/Training Program
PROC: 0QS606Z Reposition Right Upper Femur with Intramedullary Internal Fixation Device, Open Approach (ICD-10-PCS; CPT 27245; principal; 2020-09-06 13:50)
DX: S72.141A Displaced intertrochanteric fracture of right femur, initial encounter for closed fracture (principal); F03.91 Unspecified dementia, unspecified severity, with behavioral disturbance; W18.30XA Fall on same level, unspecified, initial encounter; Y92.129 Unspecified place in nursing home as the place of occurrence of the external cause; Z87.440 Personal history of urinary (tract) infections; D64.9 Anemia, unspecified; G40.909 Epilepsy, unspecified, not intractable, without status epilepticus; I10 Essential (primary) hypertension; E78.5 Hyperlipidemia, unspecified; R33.9 Retention of urine, unspecified; R13.10 Dysphagia, unspecified; Z86.73 Personal history of transient ischemic attack (TIA), and cerebral infarction without residual deficits; Z66 Do not resuscitate; Z79.82 Long term (current) use of aspirin
CPT/HCPCS: 36415; 51702; 71045; 73502; 73552; 76000; 80048; 80053; 80164; 81001; 82550; 83540; 83550; 83735; 84145; 84443; 85025; 85610; 85730; 86850; 86900; 87426; 87635; 93005; 96372; 97162; 97530; 99285; C1713; J0690; J1650; J2270; J2370; J2704; J3010; J7030